=== PATIENT | female | born 1985 | race Caucasian/White ===

== ENCOUNTER → 2023-05-07 | Outpatient (CLI) | payer OTHER | LOC: M PLALAB 13:28 | PROVIDERS: ATTEND Registered Nurse | DX: Z33.1 Pregnant state, incidental (principal) ==

== ENCOUNTER → 2023-06-17 | Outpatient (CLI) | payer OTHER ==
[2023-06-17 17:39] LABS: MEAN CORPUSCULAR HEMOGLOBIN 31.3 pg (27.0-33.0); MEAN CORPUSCULAR HGB CONC 34.3 g/dl (32.0-36.5); MEAN CORPUSCULAR VOLUME 91.4 fl (80.0-96.0); PLATELET COUNT, AUTOMATED 275 10^3/uL (150-450); RED BLOOD COUNT 3.83 10^6/uL (4.00-5.40); WHITE BLOOD COUNT 11.4 10^3/uL (4.0-10.0)
[2023-06-17 18:29] LABS: HIV 1&2 SCREEN NEGATIVE (NEGATIVE)
[2023-06-17 18:37] LABS: HEPATITIS C VIRUS ABY INDEX 0.05 INDEX (<0.8)
== END ==
LOC: M PLALAB 15:45
PROVIDERS: ATTEND Advanced Practice Midwife
DX: Z34.81 Encounter for supervision of other normal pregnancy, first trimester (principal)

== ENCOUNTER → 2023-06-18 | Outpatient (REF) | payer OTHER ==
[2023-06-18 15:36] LABS: CHLAMYDIA DNA AMPLIFICATION NEGATIVE (NEGATIVE); GC DNA AMPLIFICATION NEGATIVE (NEGATIVE)
== END ==
LOC: M SFHCWAGY 12:46
PROVIDERS: ATTEND Advanced Practice Midwife
DX: Z34.81 Encounter for supervision of other normal pregnancy, first trimester (principal); Z79.899 Other long term (current) drug therapy; Z11.3 Encounter for screening for infections with a predominantly sexual mode of transmission

== ENCOUNTER → 2023-08-13 | Outpatient (CLI) | payer OTHER | LOC: M WHC 15:02 | PROVIDERS: ATTEND Advanced Practice Midwife | DX: O09.522 Supervision of elderly multigravida, second trimester (principal) ==

== ENCOUNTER → 2023-09-17 | Outpatient (CLI) | payer OTHER | LOC: M WHC 14:03 | PROVIDERS: ATTEND Advanced Practice Midwife | DX: O09.522 Supervision of elderly multigravida, second trimester (principal); O32.1XX0 Maternal care for breech presentation, not applicable or unspecified; O28.3 Abnormal ultrasonic finding on antenatal screening of mother; Z3A.24 24 weeks gestation of pregnancy ==

== ENCOUNTER → 2023-09-22 | Outpatient (CLI) | payer OTHER | LOC: M PLALAB 14:09 | PROVIDERS: ATTEND Advanced Practice Midwife | DX: O09.522 Supervision of elderly multigravida, second trimester (principal) ==

== ENCOUNTER → 2023-12-08 | Outpatient (REF) | payer OTHER | LOC: M PLALAB 10:15 | PROVIDERS: ATTEND Advanced Practice Midwife | DX: O09.523 Supervision of elderly multigravida, third trimester (principal) ==

== ENCOUNTER 2024-01-01 23:51 | Inpatient (IN) | payer OTHER ==
[~2024-01-01] VITALS: Ht 170.2 cm; Wt 79.4 kg
[2024-01-01] MEDS ORDERED: PRENTAB9 PO (23:59)
[2024-01-02] VITALS (8 sets, daily range): BP systolic 105–127; BP diastolic 61–76; O2SAT 97
[2024-01-02] MEDS ORDERED: HOME MED LIST COMPLETE! XX SCH
[2024-01-02] MEDS ORDERED: LR 1,000 ML IV SCH ×2 (00:15)
[2024-01-02] MEDS ORDERED: CARBOPROST TROMETHAMINE 250 MCG/ML AMP IM PRN (00:15)
[2024-01-02] MEDS ORDERED: OXYTOCIN DRIP 30 UNITS in IV 1 EA IV PRN (00:15)
[2024-01-02] MEDS ORDERED: OXYTOCIN DRIP 30 UNITS in IV 1 EA IV SCH (00:15)
[2024-01-02] MEDS ORDERED: METHYLERGONOVINE MALEATE 0.2MG/ML 1ML VIAL IM PRN (00:15)
[2024-01-02] MEDS ORDERED: TRANEXAMIC ACID INJection 1,000 MG in NS 100 ML IV PRN (00:15)
[2024-01-02] MEDS ORDERED: OXYTOCIN INJ 10UNITS/ML 1ML VIAL IV PRN (00:15)
[2024-01-02] MEDS ORDERED: OXYTOCIN INJ 10UNITS/ML 1ML VIAL IM PRN (00:15)
[2024-01-02 00:37] LABS: HEMATOCRIT 34.4 % (36.0-47.0); HEMOGLOBIN 12.1 g/dl (12.0-15.5); MEAN CORPUSCULAR HEMOGLOBIN 31.3 pg (27.0-33.0); MEAN CORPUSCULAR HGB CONC 35.2 g/dl (32.0-36.5); MEAN CORPUSCULAR VOLUME 89.1 fl (80.0-96.0); PLATELET COUNT, AUTOMATED 260 10^3/uL (150-450); RED BLOOD COUNT 3.86 10^6/uL (4.00-5.40); WHITE BLOOD COUNT 16.9 10^3/uL (4.0-10.0)
[2024-01-02 01:44] LABS: HEPATITIS C VIRUS ABY INDEX < 0.02 INDEX (<0.8)
[2024-01-02] MEDS ORDERED: LR 500 ML IV PRN (02:30)
[2024-01-02] MEDS ORDERED: ONDANSETRON 4MG 2ML VIAL IV PRN (02:30)
[2024-01-02] MEDS ORDERED: NALOXONE INJ 0.4MG/1ML VIAL IV PRN (02:30)
[2024-01-02] MEDS ORDERED: ePHEDrine SULFATE 25 MG/5 ML(5MG/ML) SYRINGE IVP PRN (02:30)
[2024-01-02] MEDS ORDERED: EPIDURAL/PCA KEYS XX PRN (02:30)
[2024-01-02] MEDS ORDERED: diphenhydrAMINE 50MG/ML VIAL IV PRN (02:30)
[2024-01-02] MEDS ORDERED: FENTANYL/ROPIVACAINE/NACL BAG 100 ML EPIDURAL SCH (02:30)
[2024-01-02 02:43] LABS: CORD GAS ABE V -4.4; CORD GAS HCO3 V 19.9 MMOL/L; CORD GAS PH V 7.373 UNITS; CORD GAS PO2 V 33.8 mmHg; CORD GAS SBC V 20.4 MMOL/L
[2024-01-02] MEDS: LIDOCAINE 1% MDV 20ML VIAL INFIL PRN (02:47)
[2024-01-02] MEDS ORDERED: MOM 30ML SUSPENSION UDC PO PRN (02:55)
[2024-01-02] MEDS ORDERED: METHYLERGONOVINE MALEATE 0.2 MG TAB PO PRN (02:55)
[2024-01-02] MEDS ORDERED: RHO(D) IMMUNE GLOBULIN/MALTOSE 500MCG(2500IU)/2.2ML VIAL (WINRHO) IM SCH (02:55)
[2024-01-02] MEDS ORDERED: ANUSOL HC CREAM 30GM TOP PRN (02:55)
[2024-01-02] MEDS: LACTATED RINGER'S 1000 ML IV STA (03:03)
[2024-01-02] MEDS: OXYTOCIN DRIP 30 UNITS in IV 1 EA IV PRN ×2 (03:03→03:16)
[2024-01-02] MEDS: IBUPROFEN 800 MG TAB PO PRN (04:44)
[2024-01-02] MEDS: DIBUCAINE 1% OINTMENT 30GM TOP PRN (05:05)
[2024-01-02] MEDS: PRENATAL VITAMINS CHEWABLE TABLET PO SCH (08:17)
[2024-01-02] MEDS: DOCUSATE SODIUM 100MG CAPSULE PO SCH (08:17)
[2024-01-02] MEDS: ACETAMINOPHEN 500 MG TAB PO PRN (18:07)
[2024-01-03 06:00] VITALS: BP 103/61; O2SAT 98
[2024-01-03 08:12] VITALS: BP 103/61; TEMP 97.5; O2SAT 98
[2024-01-03] MEDS ORDERED: ACET-683 PO (11:03)
[2024-01-03] MEDS ORDERED: IBUP80TA PO (11:03)
[2024-01-04] MEDS ORDERED: MEASLES,MUMPS,RUBELLA VACCINE INJ (MMR-II) SC.IMMUN ONE (09:00)
== END 2024-01-03 11:30 | disposition home or self-care (01) | DRG 807 ==
LOC: M LDO 23:51 → M LDI 01-02 00:09 → M OBS 01-02 04:46
PROVIDERS: ADMIT Obstetrics & Gynecology; ATTEND Obstetrics & Gynecology
PROC: 10E0XZZ Delivery of Products of Conception, External Approach (ICD-10-PCS; principal; 2024-01-02)
DX: O09.523 Supervision of elderly multigravida, third trimester (principal); Z37.0 Single live birth; Z3A.39 39 weeks gestation of pregnancy